=== PATIENT | female | born 1985 | race Caucasian/White ===

== ENCOUNTER → 2021-10-10 | Outpatient (CLI) | payer OTHER | LOC: M.RAD 12:52 | PROVIDERS: ATTEND Internal Medicine | DX: R07.89 Other chest pain (principal); R06.02 Shortness of breath ==

== ENCOUNTER → 2021-10-10 | Outpatient (CLI) | payer OTHER | LOC: M.CT 13:12 | PROVIDERS: ATTEND Internal Medicine | DX: Z13.6 Encounter for screening for cardiovascular disorders (principal); I25.10 Atherosclerotic heart disease of native coronary artery without angina pectoris ==